=== PATIENT | female | born 1960 | race Caucasian/White ===

== ENCOUNTER 2023-07-01 11:52 | Outpatient (CLI) | payer OTHER | END 2023-07-01 11:58 | disposition home or self-care (01) | LOC: RX STUDY 11:52 | DX: M99.01 Segmental and somatic dysfunction of cervical region (principal); M99.02 Segmental and somatic dysfunction of thoracic region; M99.03 Segmental and somatic dysfunction of lumbar region; M99.04 Segmental and somatic dysfunction of sacral region; M99.05 Segmental and somatic dysfunction of pelvic region ==

== ENCOUNTER 2023-09-21 14:28 | Outpatient (CLI) | payer OTHER | END 2023-09-21 15:04 | disposition home or self-care (01) | LOC: RAD 14:28 | DX: M19.90 Unspecified osteoarthritis, unspecified site (principal) ==